=== PATIENT | female | born 1990 | race Caucasian/White ===

== ENCOUNTER → 2024-04-01 | Outpatient (CLI) | payer MEDICAID, SELFPAY ==
--- NOTE | 2024-04-01 13:38 | XR_ITS ---
Examination: MRI thoracic spine without contrast. Date and time of exam: April 01, 2024 1334 hours INDICATIONS: Patient fell a few days ago with injury to the mid back, mid back pain Technique: Multiple sagittal and axial images of the thoracic spine have been obtained. T1 weighted localizer, sagittal T2 weighted images, TR 30-50, TE 148, T1 weighted sagittal images, TR 650, TE 14, T2-weighted transverse images, TR 6770, TE 142 Findings: Severe osteopenia The entire study is seriously degraded by patient motion Chronic appearing compressions T2, T4 No acute thoracic fracture Impression: Severe osteopenia The entire study is degraded by continual patient motion Chronic appearing compressions T2, T4
== END | disposition home or self-care (01) ==
PROVIDERS: PCP Physician Assistant; Referring Provider Physician Assistant; Visit Provider Physician Assistant
DX: M85.88 Other specified disorders of bone density and structure, other site (principal)
CPT/HCPCS: 72146

== ENCOUNTER 2024-07-31 21:33 | Inpatient (IN) | payer MEDICAID, SELFPAY ==
[2024-07-31 21:34] VITALS: BMI 34.3
[2024-07-31 22:02] VITALS: BP 139/86; PULSE 115; RESP 18; TEMP 37.3; O2SAT 95
--- NOTE | 2024-07-31 22:29 | PD.EDDENTL ---
ED Dental RME/HPI General Chief complaint: Dental/Oral/Throat Stated complaint: FEEL PIECE OF CHICKEN STUCK IN THROAT Time Seen by Provider: 07/31/24 21:47 Arrival date/time: 07/31/24 21:33 RME / HPI RME / HPI Narrative: This section includes all my notes and documentations, including HPI, PE, and ED course. Thiago Nuñez MD HPI: 34yo female presents to the ED for a chief complaint of a possible foreign body stuck in her throat. Patient states she was eating chicken 1 hour prior to arrival when she felt a piece stuck in her throat. Patient states she is unable to cough it up or swallow it, so she came in for evaluation. No breathing difficulty. Reports nausea and vomiting. Has difficulty swallowing saliva. No other complaints reported. ROS: All negative except as documented in HPI. Physical Exam: General: Alert and oriented. Eyes: Conjunctivae and lids clear. ENT: No nasal congestion. Patent airway. Neck: Supple. Heart: RRR. Lungs: No respiratory distress. Good air movement. No rhonchi, wheezing, rales. Abdomen: Soft and nontender. Normal bowel sounds. No distension. No rebound or guarding. Skin: Warm and dry. Neuro: Alert and oriented X 3. I reviewed all diagnostic test results. My review of the CT soft tissue neck report is no acute findings. My review of the CT chest report is large impacted food bolus in the proximal/mid-thoracic esophagus. Blood tests unremarkable. At this point, diagnoses include esophageal food impaction. Treatment here included Famotidine, Glucagon, NS, Zofran, Protonix, Solumedrol, and Benadryl. No significant improvement. I discussed the case with our supervisor mixing and hospitalist. About the presentation and exam and diagnostics and treatments here. And need of further care in the hospital. Will accept the patient. Thiago Nuñez MD Related Data Previous Rx's ?Medication ?Instructions ?Recorded acetaminophen 300 mg-codeine 15 mg 1 tab PO Q12H PRN pain #14 tabs 06/03/23 tablet acetaminophen 650 mg 650 mg PO Q12H PRN fever or pain 06/03/23 tablet,extended release #20 tabs ibuprofen 800 mg tablet 800 mg PO Q8H #30 tabs 06/03/23 tamsulosin 0.4 mg capsule 0.4 mg PO QDAY #14 caps 11/18/23 dexamethasone 6 mg tablet 6 mg PO QDAY #7 tabs 11/19/23 ibuprofen 800 mg tablet 800 mg PO TID PRN pain #30 tabs 11/19/23 tizanidine 4 mg tablet 4 mg PO BID PRN muscle spasticity 11/19/23 #14 tabs Allergies Allergy/AdvReac Type Severity Reaction Status Date / Time No Known Allergies Allergy Verified 07/31/24 21:34 Review of Systems Review of Systems Systems Reviewed: All systems reviewed, normal except as documented Past Medical History Past Medical History NEUROLOGIC: Positive Migraine (TAKES OTC); Negative Neurological Disorders or Seizures CARDIAC: Negative Cardiac Disorders, Congestive Heart Failure, Edema, Cellulitis or Varicose Veins RESPIRATORY: Positive Asthma, Pneumonia (2009) and Sleep Apnea (DOES NOT HAVE CPAP MACH AT THIS TIME); Negative Chronic Obstructive Pulmonary Disease (COPD) GASTROINTESTINAL: Positive Gastrointestinal Disorders, Gastroesophageal Reflux Disease and Obesity; Negative Hepatitis GENITOURINARY: Positive Genitourinary Disorders and Kidney Stones; Negative Renal Disease REPRODUCTIVE: Positive Endometriosis and Previous Pregnancies (X3) MUSCULOSKELETAL: Positive Musculoskeletal Disorders, Scoliosis (MILD) and Fibromyalgia; Negative Arthritis ENDOCRINE: Negative Endocrine Disorders, Diabetes Mellitus Type 1 or Diabetes Mellitus Type 2 HEMATOLOGIC: Negative Blood Disorders, Anemia or Sickle Cell Disease PSYCHO/SOCIAL: Positive Bipolar Disorder, Depression (no meds), Anxiety (no meds), Attention Deficit Hyperactivity Disorder, Depression and Post Traumatic Stress Disorder OTHER HISTORY: Positive Hospitalization ([facility]) and Chicken Pox; Negative Autoimmune Disease, Shingles, Falls, Blood Transfusions, Blood Transfusion Reaction, Anesthesia Reactions, Chemotherapy, Radiation Therapy, MRSA, Measles, Mumps or Cancer Family History FAMILY HISTORY: Positive Family Psychiatric Problems (MOTHER,SISTER (DEPRESSION,ANXIETY)), Family Cardiac Disorders (MOTHER (HTN)) and Family Surgery (MOTHER); Negative Family Respiratory Disorders, Family Gastrointestinal Problems, Family Cancer or Family Anesthesia Reaction Surgical History SURGICAL: Positive Section; Negative Cardiac Surgery or Pacemaker Social History SMOKING STATUS: Current every day smoker SECOND HAND EXPOSURE: No SUBSTANCE USE: does not use ED Exam Narrative Physical exam: As noted in HPI. Course Quality Measures none Orders Category Date Time Status COVID-19 Screening Questionnaire NOW Care 08/01/24 03:[address] Screening NOW Care 07/31/24 22:27 Active Decision to Admit X1 Care 08/01/24 03:39 Completed NPO NOW Care 08/01/24 03:39 Active Saline [Insert IV] NOW Care 07/31/24 22:26 Active Consult to Gastroenterology Stat Cons 08/01/24 03:36 Ordered Diet NPO (NOW) Diet 08/01/24 03:[address] chest w con Stat Exams 08/01/24 22:[address] soft tissue neck w con Stat Exams 08/01/24 22:27 Taken Amylase Stat Lab 07/31/24 23:12 Completed Bilirubin,Direct Stat Lab 07/31/24 23:12 Completed CBC Stat Lab 07/31/24 23:12 Completed CMP [Comprehensive Metabolic Panel] Stat Lab 07/31/24 23:12 Completed HCG Qualitative,Urine Stat Lab 08/01/24 01:27 Completed HCG,Qualitative Serum Stat Lab 07/31/24 23:12 Completed Lipase Stat Lab 07/31/24 23:12 Completed Magnesium Stat Lab 07/31/24 23:12 Completed PT [Prothrombin Time with INR] Stat Lab 07/31/24 23:12 Completed PTT [Partial Thromboplastin Time] Stat Lab 07/31/24 23:12 Completed DiphenhydrAMINE INJ [Benadryl Inj] Med 08/01/24 01:02 Discontinued 50 mg IVP X1 STA Famotidine Inj [Pepcid Inj] Med 07/31/24 22:26 Discontinued 20 mg IVP X1 ONE Glucagon Inj Med 07/31/24 22:26 Discontinued 1 mg IVP X1 ONE MethylPREDNISolone.* [SoluMEDROL Inj] Med 08/01/24 01:02 Discontinued 125 mg IVP X1 ONE Ondansetron Inj [Zofran Inj] Med 07/31/24 22:26 Discontinued 4 mg IVP X1 ONE Pantoprazole Inj [Protonix Inj] Med 07/31/24 22:26 Discontinued 40 mg IVP X1 ONE Sodium Chloride 0.9% 1000 ml [Ns] 1,000 ml Med 07/31/24 22:26 Discontinued IV 999 mls/hr Vital Signs Vital signs: Vital Signs Temperature 99.1 F 07/31/24 22:02 Pulse Rate 115 H 07/31/24 22:02 Respiratory Rate 18 07/31/24 22:02 Blood Pressure 139/86 H 07/31/24 22:02 Pulse Oximetry (%) 95 07/31/24 22:02 Oxygen Delivery Method Room Air 07/31/24 22:02 Dental / Oral MDM Narrative MDM Narrative:: 34yo female presents to the ED for a chief complaint of a possible foreign body stuck in her throat. Patient states she was eating chicken 1 hour prior to arrival when she felt a piece get stuck in her throat. Patient states she is unable to cough it up or swallow it, so she came in for evaluation. Patient denies any other associated symptoms. No other complaints reported. Patient data External records reviewed:: [facility] previous records (Per chart review, patient has no relevant previous ED visits.) Clinical information provided by:: patient Social determinants that could affect healthcare access:: none Patient has the following chronic illnesses:: GERD, asthma How is presenting disease/condition affected by chronic disease/condition?: uneffected by Evaluation data The following diagnostics were reviewed and interpreted by me:: lab results and radiology exam(s) Lab and/or radiology exams considered but not ordered:: none Interpretation Summary: I reviewed all diagnostic test results. My review of the CT soft tissue neck report is no acute findings. My review of the CT chest report is large impacted food bolus in the proximal/mid-thoracic esophagus. Blood tests unremarkable. Medications / Prescriptions Medications or Prescriptions considered but not ordered:: none Medication administrations:: Medication Administration History Discontinued Medications Diphenhydramine HCl (Diphenhydramine Inj 50 Mg/Ml Vial) 50 mg IVP X1 STA Stop: 08/01/24 01:03 Last Admin: 08/01/24 01:33 Dose: 50 mg Documented By: EE Famotidine (Famotidine Inj 10 Mg/Ml Vial 2 Ml) 20 mg IVP X1 ONE Stop: 07/31/24 22:27 Last Admin: 07/31/24 23:12 Dose: 20 mg Documented By: EE Glucagon (Glucagon Inj 1 Mg Vial) 1 mg IVP X1 ONE Stop: 07/31/24 22:27 Last Admin: 07/31/24 23:12 Dose: 1 mg Documented By: EE Sodium Chloride (Ns) 1,000 mls @ 999 mls/hr IV .Q1H1M ONE Stop: 07/31/24 23:26 Last Infusion: 08/01/24 00:36 Dose: Infused Documented By: Admin: 07/31/24 23:11 Dose: 999 mls/hr Documented By: FRANCISCO Methylprednisolone Sodium Succinate (Methylprednisolone Sod Succ 62.5 Mg/Ml 2ml Vial) 125 mg IVP X1 ONE Stop: 08/01/24 01:03 Last Admin: 08/01/24 01:31 Dose: 125 mg Documented By: EE Ondansetron HCl (Ondansetron Inj 2 Mg/Ml Inj 2 Ml) 4 mg IVP X1 ONE; Protocol Stop: 07/31/24 22:27 Last Admin: 07/31/24 23:17 Dose: 4 mg Documented By: EE Pantoprazole Sodium (Pantoprazole Inj 40 Mg Vial) 40 mg IVP X1 ONE Stop: 07/31/24 22:27 Last Admin: 07/31/24 23:16 Dose: 40 mg Documented By: EE Famotidine, Glucagon, NS, Zofran, Protonix, Solumedrol, Benadryl Consultations Consultation(s) initiated? (list below): Yes Consultation #1 (Physician, Specialty, Details): I discussed the case with our GI specialist, Dr. Levi. About the presentation and exam and diagnostics and treatments here. And need of further care in the hospital. Agrees to consult. Recommended admission to hospitalist service. Time: 03:36 Diagnosis Dental Differential Diagnosis: other (Esophageal food impaction, psychogenic, GERD, PUD, gastritis) Most likely diagnosis given after review of the tests above:: Esophageal food impaction Admission Indicated Admission indicated?: indicated Explain why admission is indicated or not indicated:: Esophageal food impaction Admission Request Was there a request for admission?: Yes Admission Attestation Admission request attestation: Discussed case with Hospitalist service regarding admission. Discussed patients ED course, exam findings, labs, and radiology results. The Hospitalist [agrees] to accept the patient for admission. Disposition Plan Disposition Plan: Admit Discharge Plan Plan Patient Disposition: Admit Acute Care w/in Hospital Prescriptions/Referrals Prescriptions/Med Rec: No Action tamsulosin 0.4 mg capsule 0.4 mg PO QDAY Qty: 14 0RF dexamethasone 6 mg tablet 6 mg PO QDAY Qty: 7 0RF tizanidine 4 mg tablet 4 mg PO BID PRN (Reason: muscle spasticity) Qty: 14 0RF ibuprofen 800 mg tablet 800 mg PO TID PRN (Reason: pain) Qty: 30 0RF ibuprofen 800 mg tablet 800 mg PO Q8H Qty: 30 0RF acetaminophen-codeine 300-15 mg tablet 1 tab PO Q12H PRN (Reason: pain) Qty: 14 0RF acetaminophen 650 mg tablet extended release 650 mg PO Q12H PRN (Reason: fever or pain) Qty: 20 0RF Referrals: Ronan Palmer MD [Primary Care Provider] - In 1 week Problem List Clinical Impression: Obstruction of esophagus due to food impaction Patient/Caregiver Discharge Instructions Print Language: Swedish Stand Alone Forms: [employer] Award Info., Patient Portal Info Letter
[2024-07-31] MEDS: SODIUM CHLORIDE 0.9% 1000 ML 1,000 ML 999 ML IV (23:11)
[2024-07-31] MEDS: GLUCAGON INJ 1 MG VIAL IVP (23:12)
[2024-07-31] MEDS: FAMOTIDINE INJ 10 MG/ML VIAL 2 ML 20 MG IVP (23:12)
[2024-07-31] MEDS: PANTOPRAZOLE INJ 40 MG VIAL IVP (23:16)
[2024-07-31] MEDS: ONDANSETRON INJ 2 MG/ML INJ 2 ML 4 MG IVP (23:17)
[2024-07-31 23:26] LABS: Basophils # (Auto) 0.1 Thou/mm3 (0.0-0.2); Basophils % (Auto) 1 % (0-2.5); Eosinophils # (Auto) 0.6 Thou/mm3 (0.0-0.5); Eosinophils % (Auto) 6 % (0-10); Hematocrit 37.1 % (36.0-46.0); Hemoglobin 12.5 g/dL (12.0-16.0); Immature Granulocytes % (Auto) 1 % (0-0); Immature Granulocytes Auto 0.06 Thou/mm3 (0.00-0.00); Lymphocytes # (Auto) 2.4 Thou/mm3 (1.0-4.8); Lymphocytes % (Auto) 25 % (10-50); Mean Corpuscular HGB Conc 33.7 g/dl (31.0-37.0); Mean Corpuscular Hemoglobin 30.9 pg (25.0-35.0); Mean Corpuscular Volume 92 fL (80-100); Monocytes # (Auto) 0.6 Thou/mm3 (0.0-0.8); Monocytes % (Auto) 6 % (0-12); Neutrophils # (Auto) 6.2 Thou/mm3 (1.8-7.7); Neutrophils % (Auto) 63 % (37-80); Nucleated Red Blood Cell % 0 /100 WBC (0); Platelet Count 395 Thou/mm3 (140-440); RDW Standard Deviation 44.1 fL (36.4-46.3); Red Blood Count 4.05 Miln/mm3 (4.00-5.20); White Blood Count 9.9 Thou/mm3 (3.6-11.0)
[2024-07-31 23:41] LABS: Partial Thromboplastin Time 28.5 Seconds (22.0-36.0); Prothrombin Time 10.9 Seconds (9.0-12.2)
[2024-07-31 23:51] LABS: Alanine Aminotransferase 19 U/L (10-49); Albumin, Serum 4.7 gm/dL (3.5-5.0); Albumin/Globulin Ratio 1.7 (1.2-2.2); Alkaline Phosphatase 53 U/L (46-116); Amylase 151 U/L (30-118); Anion Gap 11 (7-16); Aspartate Amino Transferase 19 U/L (0-34); BUN/Creatinine Ratio 10 Ratio (12-20); Bilirubin,Direct < 0.1 mg/dL (0.0-0.3); Bilirubin,Total 0.4 mg/dL (0.3-1.2); Blood Urea Nitrogen 8 mg/dL (9-23); Calcium 9.1 mg/dL (8.3-10.6); Calcium (Corrected) 9.1 mg/dL (8.5-10.1); Carbon Dioxide 22.3 mMol/L (20.0-31.0); Chloride 110 mMol/L (98-107); Creatinine (Component) 0.8 mg/dL (0.6-1.3); Estimated Creatinine Clearance 110.1 mL/min (>60); Globulin 2.8 gm/dL (2.3-3.5); Glucose 101 mg/dL (74-106); Lipase 40 U/L (12-53); Osmolality,Calculated 283 (275-295); Potassium 3.6 mMol/L (3.4-5.1); Sodium 143 mMol/L (136-145); Total Protein 7.5 gm/dL (5.7-8.2); eGFR > 60 See Note
[2024-08-01] VITALS (18 sets, daily range): BP systolic 124–158; BP diastolic 81–107; PULSE 73–101; RESP 15–99; TEMP 35.9–37.1; O2SAT 93–99; BMI 34.3
[2024-08-01 00:10] LABS: HCG,Qualitative Serum Negative
[2024-08-01] MEDS: MethylPREDNISolone SOD SUCC 62.5 MG/ML 2ML VIAL 125 MG IVP (01:31)
[2024-08-01] MEDS: DiphenhydrAMINE INJ 50 MG/ML VIAL IVP (01:33)
[2024-08-01 01:51] LABS: HCG Qualitative,Urine Negative
--- NOTE | 2024-08-01 03:22 | PRELIM_ITS ---
CT scan of the neck with intravenous contrast (axial sections with sagittal and coronal reformats) August 01, 2024 at 0138 hours Clinical History: Food bolus Comparison: Compared with the prior study dated April 03, 2021. Findings: The evaluation is limited due to motion artifact. No evidence of radiodense foreign body or impacted food bolus in the aerodigestive tract. The nasopharynx, oropharynx, hypopharynx, supraglottic and infraglottic larynx, vocal cords and upper trachea are unremarkable. The epiglottis and aryepiglottic folds appear unremarkable. The parotid, submandibular and thyroid glands are unremarkable bilaterally. No enhancing lesion or fluid collection is identified. The vessels of the neck are well opacified. No filling defect is seen. The superficial soft tissues of the neck are unremarkable. There are subcentimeter bilateral cervical lymph nodes. Mild degenerative changes are identified in the spine. Impression: 1. Limited evaluation as described. 2. No evidence of radiodense foreign body or impacted food bolus in the aerodigestive tract. 3. Other findings as described above. Report Electronically Signed By: Mike Guerrero 08/01/2024 3:22:08 AM [EST]
--- NOTE | 2024-08-01 03:32 | PRELIM_ITS ---
CT scan of the chest with intravenous contrast (axial sections with sagittal and coronal reformats) August 01, 2024 0138 hours Clinical History: Food bolus Comparison: Compared with prior CT chest, abdomen and pelvis study dated June 01, 2020. Findings: Left basilar streaky atelectasis is noted. Subpleural reticulations / atelectatic changes are noted in the right middle lobe. Azygous lobe and fissure are noted, representing a normal variant. The lungs are otherwise clear. No evidence of pleural effusion or pneumothorax. The mediastinum demonstrates no evidence of mass or lymphadenopathy. The thoracic aorta is unremarkable without dissection or aneurysm. There is no pericardial effusion. There is impacted food bolus in the proximal/mid-thoracic esophagus, measuring 3.8 x 2 cm. There is mild thickening of the distal esophagus, which may represent reflux esophagitis. No evidence of radiodense foreign body in the aerodigestive tract. The osseous structures are unremarkable. Fatty infiltration of the liver is noted. The gallbladder is contracted. The other visualized upper abdominal viscera are unremarkable. Impression: 1. Impacted food bolus in the proximal/mid-thoracic esophagus, as described. 2. Other findings as described above. Report Electronically Signed By: Mike Guerrero 08/01/2024 3:32:07 AM [EST]
--- NOTE | 2024-08-01 04:15 | PD.RESHP ---
Documentation for date of: 08/01/24 HPI History of Present Illness Chief complaint: Feeling of food stuck in throat History of present illness: 34-year-old female with past medical history of endometriosis and allergies was admitted to hospital on 08/01/2024 after coming to the ED with complaints of feelings of food stuck in her throat. On assessment patient stated that she was eating chicken today when all of a sudden she took a bite and immediately afterwards she felt that it was stuck in her throat. She attempted to clear it by coughing and by inducing herself to vomit, but was unsuccessful. Patient stated that she has had this issue in the past and she had some difficulties with swallowing ever since she was a kid, but was never worked up for. Patient stated that the last time this happened was around a year ago, but it self resolved and she did not require any intervention during this time. She stated that today she has been unable to clear the feeling of something stuck in her throat even with fluids and now she is more nauseated. She mentions she does not have any history of autoimmune diseases. She stated that initially when she felt the food was stuck in her throat she did feel little bit short of breath, but she has been breathing okay and she has no chest pain. On assessment patient was saturating well and did not appear to be having increased work of breathing. ED course: Initially came in tachycardic and hypertensive. Initial labs were unremarkable. Initial imaging included soft tissue neck CT which did not show any evidence of foreign body or impacted food bolus and aerodigestive tract and chest CT that did show a impacted food bolus in the proximal/mid thoracic esophagus measuring 3.8 x 2 cm. ED provider spoke with GI specialist who stated to admit the patient for possible EGD for foreign body removal. PMH: As above Medication: Zyrtec Social Hx: Admits vaping, social alcohol, denies any drugs Allergies: NKDA Review of Systems Review of Systems Systems Reviewed: All systems reviewed, normal except as documented Past Medical History Past Medical History NEUROLOGIC: Positive Migraine (TAKES OTC); Negative Neurological Disorders or Seizures CARDIAC: Negative Cardiac Disorders, Congestive Heart Failure, Edema, Cellulitis or Varicose Veins RESPIRATORY: Positive Asthma, Pneumonia (2009) and Sleep Apnea (DOES NOT HAVE CPAP MACH AT THIS TIME); Negative Chronic Obstructive Pulmonary Disease (COPD) GASTROINTESTINAL: Positive Gastrointestinal Disorders, Gastroesophageal Reflux Disease and Obesity; Negative Hepatitis GENITOURINARY: Positive Genitourinary Disorders and Kidney Stones; Negative Renal Disease REPRODUCTIVE: Positive Endometriosis and Previous Pregnancies (X3) MUSCULOSKELETAL: Positive Musculoskeletal Disorders, Scoliosis (MILD) and Fibromyalgia; Negative Arthritis ENDOCRINE: Negative Endocrine Disorders, Diabetes Mellitus Type 1 or Diabetes Mellitus Type 2 HEMATOLOGIC: Negative Blood Disorders, Anemia or Sickle Cell Disease PSYCHO/SOCIAL: Positive Bipolar Disorder, Depression (no meds), Anxiety (no meds), Attention Deficit Hyperactivity Disorder, Depression and Post Traumatic Stress Disorder OTHER HISTORY: Positive Hospitalization (H[facility]P FOR PNUEMON[facility]) and Chicken Pox; Negative Autoimmune Disease, Shingles, Falls, Blood Transfusions, Blood Transfusion Reaction, Anesthesia Reactions, Chemotherapy, Radiation Therapy, MRSA, Measles, Mumps or Cancer Family History FAMILY HISTORY: Positive Family Psychiatric Problems (MOTHER,SISTER (DEPRESSION,ANXIETY)), Family Cardiac Disorders (MOTHER (HTN)) and Family Surgery (MOTHER); Negative Family Respiratory Disorders, Family Gastrointestinal Problems, Family Cancer or Family Anesthesia Reaction Surgical History SURGICAL: Positive Section; Negative Cardiac Surgery or Pacemaker Social History SMOKING STATUS: Current every day smoker SECOND HAND EXPOSURE: No SUBSTANCE USE: does not use Exam Vital Signs Temp Pulse Resp BP Pulse Ox O2 Del Method 98.7 F 75 18 153/91 H 96 Room Air 08/01/24 02:11 08/01/24 02:11 08/01/24 02:11 08/01/24 02:11 08/01/24 02:11 08/01/24 02:11 Narrative Exam General: A/O x3, no acute distress Eyes: PERRL, EOMI. Anicteric, vision grossly intact. Ears: No ear pain, no ear discharge, Hearing grossly intact. Nose: No nasal discharge. Mouth/Throat: Moist mucous membranes, no redness, no lesions. Neck: Neck supple, non-tender, no cervical lymphadenopathy. Lungs: Clear MITRA to auscultation and percussion, No accessory muscle use. Cardio: Normal S1/S2, regular rhythm, no murmurs, no JVD Abdomen: Soft, non-tender, no palpable masses, peristalsis present, no guarding or rebound. Extremities: Symmetrical, no significant deformities, no peripheral edema , non-tender, peripheral pulses presents. Skin: No rashes, no lesions, warm to touch. Neuro: No focal neurological deficits. motor and sensory intact. Psych: Cooperative, appropriate mood and effect. Results: Labs 08/01/24 04:40 08/01/24 04:40 Labs: Short CBC 07/31/24 Range/Units 23:12 WBC 9.9 (3.6-11.0) Thou/mm3 Hgb 12.5 (12.0-16.0) g/dL Hct 37.1 (36.0-46.0) % Plt Count 395 (140-440) Thou/mm3 BMP 07/31/24 23:12 Sodium 143 Potassium 3.6 Chloride 110 H Carbon Dioxide 22.3 BUN 8 L Creatinine 0.8 Glucose 101 Calcium 9.1 Liver Function 07/31/24 Range/Units 23:12 Total Bilirubin 0.4 (0.3-1.2) mg/dL Direct Bilirubin < 0.1 (0.0-0.3) mg/dL AST 19 (0-34) U/L ALT 19 (10-49) U/L Alkaline Phosphatase 53 (46-116) U/L Albumin 4.7 (3.5-5.0) gm/dL Quality Measures Quality Measures none Medications Home Medications and Allergies Allergies Allergy/AdvReac Type Severity Reaction Status Date / Time No Known Allergies Allergy Verified 07/31/24 21:34 Visit Medications Sodium Chloride (Ns) 1,000 mls @ 80 mls/hr IV .[id number] [facility] Stop: 08/01/24 16:44 Metoclopramide HCl (Metoclopramide Inj 5 Mg/Ml Vial 2 Ml) 10 mg IVP Q6H PRN; Protocol PRN Reason: NAUSEA OR VOMITING Stop: 08/31/24 04:11 Pantoprazole Sodium (Pantoprazole Inj 40 Mg Vial) 40 mg IVP QDAY CHATO Stop: 08/31/24 08:59 Discontinued Medications Diphenhydramine HCl (Diphenhydramine Inj 50 Mg/Ml Vial) 50 mg IVP X1 STA Stop: 08/01/24 01:03 Last Admin: 08/01/24 01:33 Dose: 50 mg Famotidine (Famotidine Inj 10 Mg/Ml Vial 2 Ml) 20 mg IVP X1 ONE Stop: 07/31/24 22:27 Last Admin: 07/31/24 23:12 Dose: 20 mg Glucagon (Glucagon Inj 1 Mg Vial) 1 mg IVP X1 ONE Stop: 07/31/24 22:27 Last Admin: 07/31/24 23:12 Dose: 1 mg Sodium Chloride (Ns) 1,000 mls @ 999 mls/hr IV .Q1H1M ONE Stop: 07/31/24 23:26 Last Infusion: 08/01/24 00:36 Dose: Infused Methylprednisolone Sodium Succinate (Methylprednisolone Sod Succ 62.5 Mg/Ml 2ml Vial) 125 mg IVP X1 ONE Stop: 08/01/24 01:03 Last Admin: 08/01/24 01:31 Dose: 125 mg Ondansetron HCl (Ondansetron Inj 2 Mg/Ml Inj 2 Ml) 4 mg IVP X1 ONE; Protocol Stop: 07/31/24 22:27 Last Admin: 07/31/24 23:17 Dose: 4 mg Pantoprazole Sodium (Pantoprazole Inj 40 Mg Vial) 40 mg IVP X1 ONE Stop: 07/31/24 22:27 Last Admin: 07/31/24 23:16 Dose: 40 mg Assessment & Plan Plan 34-year-old female with past medical history of endometriosis and allergies was admitted to hospital on 08/01/2024 for esophageal foreign body. #Esophageal foreign body #Impacted Food bolus in proximal/mid thorax esophagus Patient stated that she was eating some roasted chicken when all of a sudden after a bite she experienced feelings of food stuck in her throat and was unable to clear it with fluids, coughing, or trying to vomit. chest CT that did not show a impacted food bolus in the proximal/mid thoracic esophagus measuring 3.8 x [address] which did not show any evidence of foreign body or impacted food bolus and aerodigestive tract DDx includes also eosinophilic esophagitis versus due to autoimmune diseases ED physician spoke with GI specialist who stated that the patient will require removal of foreign body via EGD. Patient did not appear to be in any respiratory distress and lungs sounded clear bilaterally. Patient was able to speak in full sentences. Plan: N.p.o. Reglan for nausea Protonix 40 mg IV daily IV fluids GI consulted, appreciate recommendations Aspiration precautions Disposition: Patient admitted to [facility] for impacted food bolus. Diet: NPO GI prophylaxis: protonix DVT prophylaxis: SCDs Code: Full Case disclosed with Attending Dr. Jarrod Taylor PGY1 Disclaimer: Even though this this note was dictated by speech recognition and even though it was carefully revised there may still be minor errors in plating inspector due to voice recognition software. Attending Provider Attestation/Addendum I reviewed labs, imaging, EKG, home medications and prior available records. Face to face evaluation was performed by me. I have personally examined the patient and discussed assessment and plan with the IM team. I reviewed the resident note and agree with the plan with exceptions as below. Foreign body in esophagus Dysphagia Tachycardia, sinus CT that did show a impacted food bolus in the proximal/mid thoracic esophagus measuring 3.8 x 2 cm ED provider spoke with GI specialist who recommended admission for possible EGD for foreign body removal Keep the patient NPO Management of nausea/vomiting as needed IV fluids
[2024-08-01] MEDS: METOCLOPRAMIDE INJ 5 MG/ML VIAL 2 ML 10 MG IVP ×3 (04:42→17:19)
[2024-08-01] MEDS: SODIUM CHLORIDE 0.9% 1000 ML 1,000 ML 80 ML IV (04:42)
[2024-08-01 04:48] LABS: Basophils # (Auto) 0.1 Thou/mm3 (0.0-0.2); Basophils % (Auto) 1 % (0-2.5); Eosinophils # (Auto) 0.3 Thou/mm3 (0.0-0.5); Eosinophils % (Auto) 3 % (0-10); Hematocrit 36.2 % (36.0-46.0); Hemoglobin 12.4 g/dL (12.0-16.0); Immature Granulocytes % (Auto) 1 % (0-0); Immature Granulocytes Auto 0.08 Thou/mm3 (0.00-0.00); Lymphocytes # (Auto) 1.4 Thou/mm3 (1.0-4.8); Lymphocytes % (Auto) 13 % (10-50); Mean Corpuscular HGB Conc 34.3 g/dl (31.0-37.0); Mean Corpuscular Hemoglobin 31.1 pg (25.0-35.0); Mean Corpuscular Volume 91 fL (80-100); Monocytes # (Auto) 0.3 Thou/mm3 (0.0-0.8); Monocytes % (Auto) 2 % (0-12); Neutrophils # (Auto) 9.2 Thou/mm3 (1.8-7.7); Neutrophils % (Auto) 81 % (37-80); Nucleated Red Blood Cell % 0 /100 WBC (0); Platelet Count 379 Thou/mm3 (140-440); RDW Standard Deviation 43.8 fL (36.4-46.3); Red Blood Count 3.99 Miln/mm3 (4.00-5.20); White Blood Count 11.3 Thou/mm3 (3.6-11.0)
[2024-08-01 05:18] LABS: Alanine Aminotransferase 20 U/L (10-49); Albumin, Serum 4.6 gm/dL (3.5-5.0); Albumin/Globulin Ratio 1.7 (1.2-2.2); Alkaline Phosphatase 52 U/L (46-116); Anion Gap 11 (7-16); Aspartate Amino Transferase 16 U/L (0-34); BUN/Creatinine Ratio 10 Ratio (12-20); Bilirubin,Total 0.2 mg/dL (0.3-1.2); Blood Urea Nitrogen 8 mg/dL (9-23); Calcium 8.7 mg/dL (8.3-10.6); Calcium (Corrected) 8.7 mg/dL (8.5-10.1); Carbon Dioxide 23.9 mMol/L (20.0-31.0); Chloride 108 mMol/L (98-107); Creatinine (Component) 0.8 mg/dL (0.6-1.3); Estimated Creatinine Clearance 110.1 mL/min (>60); Globulin 2.7 gm/dL (2.3-3.5); Glucose 127 mg/dL (74-106); Magnesium 1.9 mg/dL (1.6-2.6); Osmolality,Calculated 285 (275-295); Potassium 3.9 mMol/L (3.4-5.1); Sodium 143 mMol/L (136-145); Total Protein 7.3 gm/dL (5.7-8.2); eGFR > 60 See Note
[2024-08-01] MEDS: PANTOPRAZOLE INJ 40 MG VIAL IVP (08:37)
--- NOTE | 2024-08-01 09:32 | CHAP ---
Responded to a Rapid Response at 09:32. Manager Cable not needed.
--- NOTE | 2024-08-01 09:35 | XR_ITS ---
Examination: PA lateral chest 2 views TECHNIQUE: Upright PA lateral chest 2 views Date and time: August 01, 2024 0955 hours INDICATIONS: Patient states thickened bone in the throat today. FINDINGS: Normal heart size. No aspiration pneumonia. No opaque foreign body. Azygous fissure right upper lobe IMPRESSION: No aspiration pneumonia
[2024-08-01] MEDS: ONDANSETRON INJ 2 MG/ML INJ 2 ML 4 MG IVP (09:40)
--- NOTE | 2024-08-01 09:51 | PC.SS ---
Patient Jayshree Emerson is a 34-year-old female admitted for Esophageal foreign body. SS conducted bedside contact with the patient to conduct initial assessment and to discuss discharge planning. Patient confirmed demographic information. Patient's surrogate decision maker is her , Alejandro Bills, . Patient reports she lives at home with . Pt states she is able to complete all ADL?s independently, Patient reports she does not utilize any source of DME to assist with ambulation. Patient's PCP is Ronan Palmer Choice of pharmacy is [facility]. At time of discharge family will provide transportation. Discharge plan: Home Next of Kin, , Jayshree Emerson
--- NOTE | 2024-08-01 11:47 | PD.RESEVENT ---
Documentation for date of: 08/01/24 Event Note Event Note: A Rapid Response was called due to the patient experiencing nausea and shortness of breath. On evaluation, the patient was saturating at 96% on room air and was complaining of severe nausea along with throat discomfort. IV Zofran was administered for symptom control, and Toradol was given for pain management. GI was contacted again, and the plan is to proceed with an endoscopy later today or this evening. The patient remained hemodynamically stable. Close monitoring will continue, and follow-up with GI is planned. Patient care was discussed with attending physician Dr. Mahamed Solis MD PGY-2 I have carefully reviewed this document. Due to imperfections in the voice software, there could be grammatical errors including phonetic/typographic errors. This in no way compromises the medical care the patient is receiving
[2024-08-01] MEDS: KETOROLAC INJ 30 MG/ML VIAL 15 MG IVP (11:54)
--- NOTE | 2024-08-01 13:32 | PD.IMCONS ---
HPI Data of Consult Requesting Physician: Oscar Garay MD Primary Care Provider: Ronan Palmer MD Consult Narrative Reason for consult: Foreign body obstruction esophagus History of present illness: 34 is a female presented emergency room with foreign body obstruction esophagus She was having a chicken meal It has happened a few years back may have a foreign body event after some injection in the ER according to the patient cc:: cc: Oscar Garay MD Review of Systems Review of Systems Systems Reviewed: All systems reviewed, normal except as documented Past Medical History Surgical History OTHER SURGICAL HX: As in the history of present illness Meds Home Medications and Allergies Home Medications ?Medication ?Instructions ?Recorded ?Confirmed ?Type cetirizine 10 mg tablet 10 mg PO DAILY 08/01/24 08/01/24 History Allergies Allergy/AdvReac Type Severity Reaction Status Date / Time No Known Allergies Allergy Verified 07/31/24 21:34 Exam Vital Signs Temp Pulse Resp BP Pulse Ox O2 Del Method 97.1 F 93 16 131/84 H 98 Room Air 08/01/24 12:00 08/01/24 12:00 08/01/24 12:00 08/01/24 12:00 08/01/24 12:00 08/01/24 06:47 Constitutional Comments: Alert oriented Routine Respiratory Exam Comments: Normal to auscultation Routine Abdominal Exam Comments: Soft nontender Results Labs 08/01/24 04:40 08/01/24 04:40 Labs: Short CBC 07/31/24 08/01/24 Range/Units 23:12 04:40 WBC 9.9 11.3 H (3.6-11.0) Thou/mm3 Hgb 12.5 12.4 (12.0-16.0) g/dL Hct 37.1 36.2 (36.0-46.0) % Plt Count 395 379 (140-440) Thou/mm3 BMP 07/31/24 08/01/24 23:12 04:40 Sodium 143 143 Potassium 3.6 3.9 Chloride 110 H 108 H Carbon Dioxide 22.3 23.9 BUN 8 L 8 L Creatinine 0.8 0.8 Glucose 101 127 H Calcium 9.1 8.7 Liver Function 07/31/24 08/01/24 Range/Units 23:12 04:40 Total Bilirubin 0.4 0.2 L (0.3-1.2) mg/dL Direct Bilirubin < 0.1 (0.0-0.3) mg/dL AST 19 16 (0-34) U/L ALT 19 20 (10-49) U/L Alkaline Phosphatase 53 52 (46-116) U/L Albumin 4.7 4.6 (3.5-5.0) gm/dL Assessment and Plan Additional Assessment & Plan Additional Plan: # Dysphagia secondary to foreign body obstruction with a piece of meat which is chicken Plan Informed consent obtained for fiberoptic esophagogastroduodenoscopy with possible therapeutic intervention possible biopsy under intravenous moderate sedation Will do the procedure this afternoon Thank you very much for the opportunity to participate in the care of this patient
--- NOTE | 2024-08-01 13:39 | ESPR_ITS ---
<Statement entered by Monica Solis MD - 08/01/24 14:38> 34 y old F with no significant past medical history was admitted for evaluation and management following food impaction in the esophagus. This morning, a Rapid Response was called due to the patient reporting shortness of breath, nausea, and esophageal discomfort. Zofran and Toradol were administered for symptom relief. Gastroenterology was consulted, and the plan is to perform an EGD to remove retained food particles from the esophagus. In the interim, continue nausea management as needed. Follow-up will occur post- EGD to reassess and determine further care. I discussed with and supervised the internet sales manager physician who took care of this patient. I personally saw and examined the patient and discussed the assessment and plan with the entire medicine team, including my attending , I agree with the assessment and plan as documented below Monica Solis M.D. PGY-2 Disclaimer: Despite multiple revisions, due to the dictation software being used, the document bellow may not be free of grammatical errors including phonetic/typographic errors. However, this does not deter from our commitment to providing health care in the patient's best interest in mind. Documentation for date of: 08/01/24 Subjective Subjective Interval history: Patient examined at bedside. She complains of dysphagia but no difficulties in breathing. WBCs uptrended with leukocytosis of 11. Otherwise labs unremarkable, vitals stable. Currently NPO for EGD today to remove foreign body in esophagus. IV Zofran for nausea and Toradol was given for pain management. Discharge pending EGD. Exam Vital Signs Temp Pulse Resp BP Pulse Ox O2 Del Method 97.1 F 93 16 131/84 H 98 Room Air 08/01/24 12:08/01/24 12:08/01/24 12:08/01/24 12:08/01/24 12:08/01/24 06:47 Narrative Exam General:young female, No acute distress, cooperative, sleeping HEENT: NCAT, No JVD noted. Mucosa moist. Pupils are equal and reactive to light bilaterally Cardiovascular: Normal S1 and S2. Regular rate and rhythm. Respiratory: Lungs are clear to auscultation bilaterally. No wheezing or crackles heard. Abdomen: Soft, nontender, not distended, normal bowel sounds. Skin: Warm to touch, dry, no rashes noted Musculoskeletal: No gross injuries. Able to move all 4 extremities. No pitting edema Neuro: Alert and oriented x3. No focal neuro deficits. Psych: Normal affect and mood Objective Labs 08/01/24 04:40 08/01/24 04:40 Labs: Laboratory Results - last 24 hr 07/31/24 08/01/24 08/01/24 23:12 01:27 04:40 WBC 9.9 11.3 H RBC 4.05 3.99 L Hgb 12.5 12.4 Hct 37.1 36.2 MCV 92 91 MCH 30.9 31.1 MCHC 33.7 34.3 RDW Std Deviation 44.1 43.8 Plt Count 395 379 Neut % (Auto) 63 81 H Lymph % (Auto) 25 13 [place] % (Auto) 6 2 Eos % (Auto) 6 3 Baso % (Auto) 1 1 Neut # (Auto) 6.2 9.2 H Lymph # (Auto) 2.4 1.4 [place] # (Auto) 0.6 0.3 Eos # (Auto) 0.6 H 0.3 Baso # (Auto) 0.1 0.1 Immature Gran # (Auto) 0.06 H 0.08 H Absolute Nucleated RBC 0.00 0.00 Immature Gran % 1 H 1 H Nucleated RBC % 0 0 PT 10.9 INR 1.0 APTT 28.5 Sodium 143 143 Potassium 3.6 3.9 Chloride 110 H 108 H Carbon Dioxide 22.3 23.9 Anion Gap 11 11 BUN 8 L 8 L Creatinine 0.8 0.8 Estim Creat Clear Calc 110.1 110.1 eGFR > 60 > 60 BUN/Creatinine Ratio 10 L 10 L Glucose 101 127 H Calculated Osmolality 283 285 Calcium 9.1 8.7 Corrected Calcium 9.1 8.7 Magnesium 2.0 1.9 Total Bilirubin 0.4 0.2 L Direct Bilirubin < 0.1 AST 19 16 ALT 19 20 Alkaline Phosphatase 53 52 Total Protein 7.5 7.3 Albumin 4.7 4.6 Globulin 2.8 2.7 Albumin/Globulin Ratio 1.7 1.7 Amylase 151 H Lipase 40 HCG, Qual Negative Urine HCG, Qual Negative Quality Measures Quality Measures none Assessment & Plan Assessment Current Active Medications: Generic Name Dose Route Start Last Admin Trade Name Freq PRN Reason Stop Dose Admin Sodium Chloride 1,000 mls @ 80 mls/hr 08/01/24 04:15 08/01/24 04:42 Ns IV 08/01/24 16:44 80 mls/hr .[id number] CHATO Administration Metoclopramide HCl 10 mg 08/01/24 04:12 08/01/24 11:13 Metoclopramide Inj 5 Mg/Ml Vial 2 Ml IVP 08/31/24 04:11 10 mg Q6H PRN Administration NAUSEA OR VOMITING Protocol Pantoprazole Sodium 40 mg 08/01/24 09:00 08/01/24 08:37 Pantoprazole Inj 40 Mg Vial IVP 08/31/24 08:59 40 mg QDAY CHATO Administration Plan Jayshree Emerson is 34-year-old female with past medical history of endometriosis and allergies was admitted to hospital on 08/01/2024 for esophageal foreign body. #Dysphagia 2/2 foreign body in esophagus #Food in esophagus Patient stated that she was eating some roasted chicken when all of a sudden she felt food stuck in her throat. Unable to clear it with fluids, coughing, or inducing vomit. CT chest showed masslike area in the midesophagus. CT neck had no opaque foreign body. DDx: food impaction, eosinophilic esophagitis, esophageal rings, strictures Patient did not appear to be in any respiratory distress and lungs sounded clear bilaterally. Patient was able to speak in full sentences. -consulted GI, appreciate recs -planning for EGD -N.p.o. -Reglan for nausea -Protonix 40 mg IV daily -IV fluids -tramadol for pain PRN -Aspiration precautions Disposition: med surge for impacted food bolus Diet: NPO GI prophylaxis: protonix DVT prophylaxis: SCDs Code: Full The patient's management plan was discussed with my attending physician Dr. Irby. Mayra Littlejohn, PGY-1 Attending Provider Attestation/Addendum I have examined the patient, reviewed labs and imaging findings, discussed the case with the resident(s), and reviewed entered orders. I agree with the plan of care as outlined in this note, with these additional summaries/recommendations: Patient seen at bedside. She is endorsing throat discomfort and pain. She is able to swallow her own saliva and no drooling noted. CT scan on admission showed masslike area in the mid esophagus most consistent with retained food. Patient admitted for foreign body ingestion. Per patient she was eating chicken when she noticed a got stuck in her throat. Keep patient n.p.o. for now and IV maintenance fluids. Gastroenterology consulted and patient will go for EGD later this afternoon. Continue PPI. Patient updated on the plan and in agreement. All questions answered to satisfaction. Please see residents note for additional details and management. Dr. Mahamed MD
--- NOTE | 2024-08-01 14:29 | PC.SS ---
SS follow up note; Patient is pending an EGD with Dr. Levi. Patient will discharge back home when medically cleared.
--- NOTE | 2024-08-01 18:05 | PC.NURSE ---
Report given to linda Horner.
--- NOTE | 2024-08-01 18:19 | PC.NURSE ---
Patient to endo via gurney in stable condition.
--- NOTE | 2024-08-01 19:05 | SUR.PHASEI ---
pt arrived to PACU via gurney drowsy but arouses to voice, breathing unlabored, report from Siri LANG
--- NOTE | 2024-08-01 19:35 | SUR.PHASEI ---
pt tolerating oral fluids without difficulty swallowing or n/v
--- NOTE | 2024-08-01 19:40 | SUR.PHASEI ---
pt awake, alert, able to follow commands, breathing unlabored, report called to Christiano RN, pt transferred to room at this time.
--- NOTE | 2024-08-01 20:47 | ESDS_ITS ---
Planned Discharge Date 08/01/24 DS: Providers Provider Date of admission: 08/01/24 04:12 Primary care physician: Ronan Palmer MD Admitting Provider: Oscar Garay MD Attending Provider on Admission: Alton Irby MD Consults: 08/01/24 03:36 Consult to Gastroenterology Stat Comment: Food bolus Consulting Provider: Adelaida Levi Attending Provider on DC: Oscar Garay MD Discharging Provider: Oscar Garay MD DS: Diagnosis Problem List Completed Was Problem List Reviewed/Reconciled?: Yes Hospital Course Hospital Course Hospital course: 34-year-old female with past medical history of endometriosis and allergies was admitted to hospital on 08/01/2024 for esophageal foreign body.nitially came in tachycardic and hypertensive. Initial labs were unremarkable. Initial imaging included soft tissue neck CT which did not show any evidence of foreign body or impacted food bolus and aerodigestive tract and chest CT that did show a impacted food bolus in the proximal/mid thoracic esophagus measuring 3.8 x 2 cm. Patient got EGD done which showed esophageal ulcers in the distal esophagus, gastritis, and foreign body had already passed. GI specialist recommended to discharge patient on Protonix 40 mg once daily for 30 days. At the time of discharge patient was stable enough to be discharged home and she was expressing wishes to be discharged as soon as possible and she currently did not have any complaints of chest pain, feelings of fluid stuck in her throat, or any irritation at this time. Discharge instructions: You have been started on omeprazole 40 mg daily for 30 days Please follow-up with your primary care physician within 7 days upon discharge Please follow-up with GI specialist within 1 to 2 weeks after discharge Please continue taking all other home medications as prescribed Please come back to the ED if symptoms persist or persist or worsen Problem list: #Esophageal ulcers #Gastritis #Esophageal foreign body #Impacted Food bolus in proximal/mid thorax esophagus Case disclosed with Attending Dr. Jarrod Taylor PGY1 Disclaimer: Even though this this note was dictated by speech recognition and even though it was carefully revised there may still be minor errors in senior gl accountant due to voice recognition software. Status at Discharge Overall status at discharge: patient is progressing back to baseline Time Spent with Patient Time attestation: Total time spent providing and/or coordinating discharge services:>35 min Time spent: Greater than 30 minutes Exam Vital Signs Temp Pulse Resp BP Pulse Ox O2 Del Method O2 Flow Rate 97.5 F 89 20 136/92 H 96 Room Air 3 08/01/24 20:00 08/01/24 20:00 08/01/24 20:00 08/01/24 20:00 08/01/24 20:00 08/01/24 20:00 08/01/24 19:35 Narrative Exam General: A/O x3, no acute distress Eyes: PERRL, EOMI. Anicteric, vision grossly intact. Ears: No ear pain, no ear discharge, Hearing grossly intact. Nose: No nasal discharge. Mouth/Throat: Moist mucous membranes, no redness, no lesions. Neck: Neck supple, non-tender, no cervical lymphadenopathy. Lungs: Clear MITRA to auscultation and percussion, No accessory muscle use. Cardio: Normal S1/S2, regular rhythm, no murmurs, no JVD Abdomen: Soft, non-tender, no palpable masses, peristalsis present, no guarding or rebound. Extremities: Symmetrical, no significant deformities, no peripheral edema , non-tender, peripheral pulses presents. Skin: No rashes, no lesions, warm to touch. Neuro: No focal neurological deficits. motor and sensory intact. Psych: Cooperative, appropriate mood and effect. Discharge Plan Plan Patient Disposition: HOME (Self Care) Care Plan Goals: Discharge instructions: You have been started on omeprazole 40 mg daily for 30 days Please follow-up with your primary care physician within 7 days upon discharge Please follow-up with GI specialist within 1 to 2 weeks after discharge Please continue taking all other home medications as prescribed Please come back to the ED if symptoms persist or persist or worsen Prescriptions/Referrals Prescriptions/Med Rec: New omeprazole 40 mg capsule,delayed release(DR/EC) 40 mg PO QDAY Qty: 30 0RF Continued cetirizine 10 mg tablet 10 mg PO DAILY Patient Comments: TAKE 1 TABLET BY MOUTH EVERY DAY FOR 30 DAYS Referrals: Ronan Palmer MD [Primary Care Provider] - Patient/Caregiver Discharge Instructions Discharge Activity: activity as tolerated Other Discharge Activity Instructions:: Discharge instructions: You have been started on omeprazole 40 mg daily for 30 days Please follow-up with your primary care physician within 7 days upon discharge Please follow-up with GI specialist within 1 to 2 weeks after discharge Please continue taking all other home medications as prescribed Please come back to the ED if symptoms persist or persist or worsen Education Materials: Esophageal Ulcer Print Language: Armenian Stand Alone Forms: [employer] Award Info., Patient Portal Info Letter Discharge Order Discharge Orders: Discharge (Routine); Ordered 08/01/24 Ordered By: Ki Taylor Quality Discharge Quality Measures VTE prophylaxis MD Attestestation MD Attestation I reviewed labs, imaging, EKG, home medications and prior available records. Face to face evaluation was performed by me. I have personally examined the patient and discussed assessment and plan with the IM team. I reviewed the resident note and agree with the plan with exceptions as below. Foreign body in esophagus Dysphagia Tachycardia, sinus CT that did show a impacted food bolus in the proximal/mid thoracic esophagus measuring 3.8 x 2 cm Food material likely passed spontaneously Status post EGD that showed distal esophageal ulcer and gastritis GI is okay with discharge. Will discharge on Protonix 40 mg daily Time spent is 25 minutes. More than 50% of the time was spent on patient education and coordination of care.
--- NOTE | 2024-08-01 22:27 | XR_ITS ---
Examination: CT chest with intravenous contrast 2-D sagittal and coronal reconstructions Exam date and time: August 01, 2024 0138 hours Comparison June 01, 2020 INDICATIONS: Food stuck in the throat today CTDI:vol (mGy) 21.1 DLP: (mGycm) 1234 Technique: Multiple axial sections of the thorax have been obtained. Sections have been obtained, 3 mm slice thickness. Mediastinal and lung density settings have been obtained. Intravenous contrast administered, 60 cc Isovue 370. 2-D sagittal, coronal images obtained. Low dose protocols were performed. One or more of the following dose reduction techniques were used; automated exposure control, adjustment of the mA and/or KV according to patient size, use of iterative reconstruction technique. Findings: No thoracic aortic aneurysm dilatation No pulmonary artery filling defects on this non-CTA study Masslike area in the midesophagus which may represent retained food No mediastinal lymphadenopathy No pneumonia or pulmonary edema The visualized liver or splenic lesion no gallstones IMPRESSION: Masslike area in the mid esophagus most consistent with retained food, recommend endoscopy follow-up
--- NOTE | 2024-08-01 22:27 | XR_ITS ---
Examination: CT soft tissue neck, with intravenous contrast. 2-D coronal reconstructions. 2-D sagittal reconstructions. Date and time of exam :August 01 1125 0138 hours INDICATIONS: Patient feels a piece of food stuck in the throat today. CTDI: vol (mGy):15.9 DLP: (mGycm):287 Technique: 1.25 mm axial sections of the neck of the obtained. Coronal and sagittal reconstructions have been obtained. Intravenous contrast administered 60 cc Isovue-370 Low dose protocols were performed. One or more of the following dose reduction techniques were used; automated exposure control, adjustment of the mA and/or KV according to patient size, use of iterative reconstruction technique. Findings: Study is limited secondary to patient motion Symmetrical nasopharynx oropharynx No thyroid nodules No opaque foreign body Normal epiglottis IMPRESSION: The entire study is limited secondary to continual patient motion No opaque foreign body is seen
--- NOTE | 2024-08-02 08:19 | PD.RESDS ---
Planned Discharge Date 08/02/24 DS: Providers Provider Date of admission: 08/01/24 04:12 Primary care physician: Ronan Palmer MD Admitting Provider: Oscar Garay MD Attending Provider on Admission: Alton Irby MD Consults: 08/01/24 03:36 Consult to Gastroenterology Stat Comment: Food bolus Consulting Provider: Adelaida Levi Attending Provider on DC: Mayra Littlejohn MD Discharging Provider: Mayra Littlejohn MD DS: Diagnosis Problem List Completed Was Problem List Reviewed/Reconciled?: Yes Hospital Course Hospital Course Hospital course: 34-year-old female with past medical history of endometriosis and allergies was admitted to hospital on 08/01/2024 for esophageal foreign body.nitially came in tachycardic and hypertensive. Initial labs were unremarkable. Initial imaging included soft tissue neck CT which did not show any evidence of foreign body or impacted food bolus and aerodigestive tract and chest CT that did show a impacted food bolus in the proximal/mid thoracic esophagus measuring 3.8 x 2 cm. Patient got EGD done which showed esophageal ulcers in the distal esophagus, gastritis, and foreign body had already passed. GI specialist recommended to discharge patient on Protonix 40 mg once daily for 30 days. At the time of discharge patient was stable enough to be discharged home and she was expressing wishes to be discharged as soon as possible and she currently did not have any complaints of chest pain, feelings of fluid stuck in her throat, or any irritation at this time. Discharge instructions: You have been started on omeprazole 40 mg daily for 30 days Please follow-up with your primary care physician within 7 days upon discharge Please follow-up with GI specialist within 1 to 2 weeks after discharge Please continue taking all other home medications as prescribed Please come back to the ED if symptoms persist or persist or worsen Problem list: #Esophageal ulcers #Gastritis #Esophageal foreign body #Impacted Food bolus in proximal/mid thorax esophagus Case disclosed with Attending Dr. Jarrod Taylor PGY1 Disclaimer: Even though this this note was dictated by speech recognition and even though it was carefully revised there may still be minor errors in nuclear supervising operator due to voice recognition software. Time Spent with Patient Time attestation: Total time spent providing and/or coordinating discharge services: Time spent: Greater than 30 minutes Exam Vital Signs Temp Pulse Resp BP Pulse Ox O2 Del Method O2 Flow Rate 97.5 F 89 20 136/92 H 96 Room Air 3 08/01/24 20:00 08/01/24 20:00 08/01/24 20:00 08/01/24 20:00 08/01/24 20:00 08/01/24 20:00 08/01/24 19:35 Narrative Exam General: A/O x3, no acute distress Eyes: PERRL, EOMI. Anicteric, vision grossly intact. Ears: No ear pain, no ear discharge, Hearing grossly intact. Nose: No nasal discharge. Mouth/Throat: Moist mucous membranes, no redness, no lesions. Neck: Neck supple, non-tender, no cervical lymphadenopathy. Lungs: Clear MITRA to auscultation and percussion, No accessory muscle use. Cardio: Normal S1/S2, regular rhythm, no murmurs, no JVD Abdomen: Soft, non-tender, no palpable masses, peristalsis present, no guarding or rebound. Extremities: Symmetrical, no significant deformities, no peripheral edema , non-tender, peripheral pulses presents. Skin: No rashes, no lesions, warm to touch. Neuro: No focal neurological deficits. motor and sensory intact. Psych: Cooperative, appropriate mood and effect. Discharge Plan Plan Patient Disposition: HOME (Self Care) Care Plan Goals: Discharge instructions: You have been started on omeprazole 40 mg daily for 30 days Please follow-up with your primary care physician within 7 days upon discharge Please follow-up with GI specialist within 1 to 2 weeks after discharge Please continue taking all other home medications as prescribed Please come back to the ED if symptoms persist or persist or worsen Prescriptions/Referrals Prescriptions/Med Rec: New omeprazole 40 mg capsule,delayed release(DR/EC) 40 mg PO QDAY Qty: 30 0RF Continued cetirizine 10 mg tablet 10 mg PO DAILY Patient Comments: TAKE 1 TABLET BY MOUTH EVERY DAY FOR 30 DAYS Referrals: Ronan Palmer MD [Primary Care Provider] - Patient/Caregiver Discharge Instructions Discharge Activity: activity as tolerated Other Discharge Activity Instructions:: Discharge instructions: You have been started on omeprazole 40 mg daily for 30 days Please follow-up with your primary care physician within 7 days upon discharge Please follow-up with GI specialist within 1 to 2 weeks after discharge Please continue taking all other home medications as prescribed Please come back to the ED if symptoms persist or persist or worsen Education Materials: Esophageal Ulcer Print Language: Syriac Stand Alone Forms: [employer] Award Info., Patient Portal Info Letter Discharge Order Discharge Orders: Discharge (Routine); Ordered 08/01/24 Ordered By: Ki Taylor Quality Discharge Quality Measures VTE prophylaxis MD Attestestation MD Attestation I have examined the patient, reviewed labs and imaging findings, discussed the case with the resident(s), and reviewed entered orders. I agree with the plan of care as outlined in this note. Time Spent: [address] Mahamed MD
== END 2024-08-01 21:15 | disposition home or self-care (01) | DRG 254 ==
LOC: SERX 08-01 03:40 → SERHOLD 08-01 04:36 → S3SX 08-01 06:20
PROVIDERS: Specialist; Admitting Provider Student in an Organized Health Care Education/Training Program; Emergency Provider Emergency Medicine; PCP Family Medicine; Visit Provider Student in an Organized Health Care Education/Training Program
PROC: 0DJ08ZZ Inspection of Upper Intestinal Tract, Via Natural or Artificial Opening Endoscopic (ICD-10-PCS; CPT 43239; principal; 2024-08-01 18:30)
DX: T18.128A Food in esophagus causing other injury, initial encounter (principal); W44.F3XA Food entering into or through a natural orifice, initial encounter; R00.0 Tachycardia, unspecified; I10 Essential (primary) hypertension; F17.200 Nicotine dependence, unspecified, uncomplicated; K22.10 Ulcer of esophagus without bleeding; K22.2 Esophageal obstruction; K29.70 Gastritis, unspecified, without bleeding; D72.829 Elevated white blood cell count, unspecified
CPT/HCPCS: 36415; 70491; 71046; 71260; 80053; 81025; 82150; 82248; 83690; 83735; 84703; 85025; 85610; 85730; 96361; 96374; 96375; 99285; A4217; A4649; J1200; J1611; J1885; J2250; J2405; J2470; J2765; J2919; J3010; J3490; J7030; Q9967; A9270